=== PATIENT | male | born 1945 | race Two or more races ===

== ENCOUNTER 2023-03-24 20:24 | Inpatient (IN) | payer MEDICARE ==
[~2023-03-24] VITALS: Ht 180.3 cm; Wt 79.4 kg
[2023-03-24 20:38] VITALS: O2SAT 98
[2023-03-24 21:47] LABS: BASOPHILS # (AUTO) 0.1 K/uL (0.0-0.2); BASOPHILS % (AUTO) 0.7 % (0.0-2.0); EOSINOPHILS # (AUTO) 0.2 K/uL (0.0-0.7); EOSINOPHILS % (AUTO) 2.6 % (0.0-6.0); HEMATOCRIT 40 % (39-51); LYMPHOCYTES # (AUTO) 1.7 K/uL (0.8-4.8); LYMPHOCYTES % (AUTO) 22.6 % (20.0-44.0); MEAN CORPUSCULAR HEMOGLOBIN 27 PG (26.0-33.0); MEAN CORPUSCULAR HGB CONC 33 g/dl (31.0-36.0); MEAN CORPUSCULAR VOLUME 82 fL (80-96); MONOCYTES # (AUTO) 1.1 K/uL (0.1-1.30); MONOCYTES % (AUTO) 14.5 % (2.0-12.0); NEUTROPHILS # (AUTO) 4.4 K/uL (1.8-8.9); NEUTROPHILS % (AUTO) 59.6 % (43.0-81.0); PLATELET COUNT (AUTO) 236 K/uL (150-450); RED CELL DISTRIBUTION WIDTH 14.7 % (11.5-15.0); WHITE BLOOD COUNT (AUTO) 7.4 K/uL (4.3-11.0)
[2023-03-24 22:24] LABS: CALCIUM, SERUM 9.2 mg/dL (8.5-10.1); CARBON DIOXIDE 28 mmol/L (21-32); CHLORIDE 106 mmol/L (98-107); CREATININE 1.1 mg/dL (0.6-1.3); GLUCOSE 123 mg/dL (74-106); POTASSIUM 3.6 mmol/L (3.5-5.1); SODIUM SERUM 140 mmol/L (136-145); UREA NITROGEN, BLOOD 44 mg/dL (7-18)
[2023-03-24 22:30] LABS: ALANINE AMINOTRANSFERASE 16 U/L (12-78); ALBUMIN 3.4 g/dL (3.4-5.0); ALKALINE PHOSPHATASE 98 U/L (46-116); ASPARTATE AMINOTRANSFERASE 19 U/L (15-37); BILIRUBIN,DIRECT 0.1 mg/dL (0.0-0.2); BILIRUBIN,TOTAL 0.4 mg/dL (0.2-1.0); TOTAL PROTEIN, SERUM 6.4 g/dL (6.4-8.2)
[2023-03-24] MEDS ORDERED: IV NS 0.9% 1,000 ML BAG IV ONE (22:30)
[2023-03-24] MEDS ORDERED: ONDANSETRON HCL/PF 4 MG/2 ML VIAL IVP PRN (23:30)
[2023-03-24] MEDS ORDERED: POTASSIUM CL. PREMIX PERIPHER. 50 ML IV SCH (23:30)
[2023-03-24] MEDS ORDERED: ACETAMINOPHEN 325 MG TABLET PO PRN (23:30)
[2023-03-24] MEDS ORDERED: IV NS 0.9% 1,000 ML IV PRN (23:30)
[2023-03-25 03:00] VITALS: BP 137/76; TEMP 97.6; O2SAT 93
[2023-03-25 06:27] LABS: BASOPHILS % (AUTO) 0.5 % (0.0-2.0); EOSINOPHILS # (AUTO) 0.3 K/uL (0.0-0.7); EOSINOPHILS % (AUTO) 3.5 % (0.0-6.0); HEMATOCRIT 42 % (39-51); HEMOGLOBIN 13.8 g/dL (13.5-17.5); LYMPHOCYTES # (AUTO) 1.8 K/uL (0.8-4.8); LYMPHOCYTES % (AUTO) 24.6 % (20.0-44.0); MEAN CORPUSCULAR HEMOGLOBIN 27 PG (26.0-33.0); MEAN CORPUSCULAR HGB CONC 33 g/dl (31.0-36.0); MEAN CORPUSCULAR VOLUME 82 fL (80-96); MONOCYTES % (AUTO) 13.8 % (2.0-12.0); NEUTROPHILS # (AUTO) 4.2 K/uL (1.8-8.9); NEUTROPHILS % (AUTO) 57.6 % (43.0-81.0); PLATELET COUNT (AUTO) 248 K/uL (150-450); RED BLOOD CELL COUNT(AUTO) 5.13 MIL/uL (4.5-6.0); RED CELL DISTRIBUTION WIDTH 14.7 % (11.5-15.0); WHITE BLOOD COUNT (AUTO) 7.3 K/uL (4.3-11.0)
[2023-03-25 06:46] LABS: CREATININE 0.8 mg/dL (0.6-1.3); PHOSPHORUS 3.4 mg/dL (2.5-4.9); POTASSIUM 3.5 mmol/L (3.5-5.1)
[2023-03-25 08:00] VITALS: BP 128/79; TEMP 98.6; O2SAT 95
[2023-03-25] MEDS ORDERED: DOCU100T2 PO (09:26)
[2023-03-25] MEDS ORDERED: BENA1TAB19 PO (09:26)
[2023-03-25] MEDS ORDERED: CARV12.52 PO (09:26)
[2023-03-25] MEDS ORDERED: AMLO5TAB4 PO (09:26)
[2023-03-25] MEDS ORDERED: DULO20CA PO (09:26)
[2023-03-25] MEDS ORDERED: MELA5TAB PO (09:26)
[2023-03-25] MEDS ORDERED: MYRBETRIQ PO (09:26)
[2023-03-25] MEDS ORDERED: UBID100C13 PO (09:26)
[2023-03-25] MEDS ORDERED: CHOL500062 PO (09:26)
[2023-03-25] MEDS ORDERED: CARB1TAB21 PO (09:26)
[2023-03-25] MEDS ORDERED: MULT-1169 PO (09:26)
[2023-03-25] MEDS ORDERED: TRAZ150T75 PO (09:26)
[2023-03-25] MEDS ORDERED: PRAV80TA21 PO (09:26)
[2023-03-25] MEDS ORDERED: CARBIDOPA/LEVODOPA 25/100 MG 1 UDTAB PO SCH (10:00)
[2023-03-25] MEDS ORDERED: AMLODIPINE BESYLATE 5 MG TABLET PO SCH (17:00)
[2023-03-25] MEDS ORDERED: DULOXETINE HCL 20 MG CAPSULE.DR PO SCH (17:00)
[2023-03-25] MEDS ORDERED: CARVEDILOL 12.5 MG TABLET PO SCH (17:00)
[2023-03-25] MEDS ORDERED: TRAZODONE 50 MG TABLET PO SCH (22:00)
[2023-03-25] MEDS ORDERED: ATORVASTATIN 10 MG TABLET PO SCH (22:00)
[2023-03-25] MEDS ORDERED: Medication Not On Formulary EA ([Myrbetriq] 50 MG) PO SCH (22:00)
[2023-03-26] MEDS ORDERED: MULTIVITAMINS,THERAGRAN 1 UDTAB TABLET PO SCH (09:00)
[2023-03-26] MEDS ORDERED: CHOLECALCIFEROL 1,000 UNIT TABLET (VIT D3) PO SCH (09:00)
[2023-03-26] MEDS ORDERED: LISINOPRIL (20MG) 20 MG TABLET PO SCH (09:00)
[2023-03-26] MEDS ORDERED: HYDROCHLOROTHIAZIDE 25 MG TABLET PO SCH (09:00)
[2023-03-26] MEDS ORDERED: DOCUSATE SODIUM 100 MG CAPSULE PO SCH (09:00)
== END 2023-03-25 14:49 | disposition home health service (06) | DRG 640 ==
LOC: ER 20:26 → TELE 22:52
PROVIDERS: ADMIT Nurse Practitioner Acute Care; ATTEND Nurse Practitioner Acute Care
DX: E86.0 Dehydration (principal); G92.8 Other toxic encephalopathy; F02.80 Dementia in other diseases classified elsewhere, unspecified severity, without behavioral disturbance, psychotic disturbance, mood disturbance, and anxiety; G20 Parkinson's disease; E78.5 Hyperlipidemia, unspecified; D64.9 Anemia, unspecified; E87.6 Hypokalemia; I10 Essential (primary) hypertension; R29.6 Repeated falls
CPT/HCPCS: 36415; 70450-TC; 71045-TC; 80048-TC; 80076-TC; 83735-TC; 84100-TC; 84484-TC; 85025-TC; 87081-TC; A4223; G0378; J3480; J7030